=== PATIENT | female | born 1960 | race Caucasian/White ===

== ENCOUNTER 2018-03-26 09:46 | Outpatient (CLI) | payer OTHER | END 2018-03-26 16:04 | disposition home or self-care (01) | LOC: MAMO-SONO 09:46 | DX: Z12.31 Encounter for screening mammogram for malignant neoplasm of breast (principal); N60.11 Diffuse cystic mastopathy of right breast; N60.12 Diffuse cystic mastopathy of left breast ==

== ENCOUNTER 2020-04-13 09:24 | Outpatient (CLI) | payer OTHER | END 2020-04-13 10:02 | disposition home or self-care (01) | LOC: RAD 09:24 | PROVIDERS: ATTEND Internal Medicine | DX: M50.30 Other cervical disc degeneration, unspecified cervical region (principal); N60.11 Diffuse cystic mastopathy of right breast; N60.12 Diffuse cystic mastopathy of left breast | CPT/HCPCS: 72141 ==

== ENCOUNTER 2020-04-13 11:58 | Outpatient (CLI) | payer OTHER | END 2020-04-13 12:53 | disposition home or self-care (01) | LOC: NUCLEAR 11:58 | PROVIDERS: ATTEND Internal Medicine | DX: M81.0 Age-related osteoporosis without current pathological fracture (principal) ==

== ENCOUNTER 2020-11-08 11:24 | Emergency (ER) | payer OTHER ==
[~2020-11-08] VITALS: Ht 157.5 cm; Wt 68.0 kg
[2020-11-08] MEDS ORDERED: ATORVASTATIN CA20 MG PO (11:39)
[2020-11-08] MEDS ORDERED: PROPRANOLOL HCL20 MG PO (11:39)
[2020-11-08] MEDS ORDERED: GABAPENTIN300 M2 PO (11:40)
[2020-11-08] MEDS ORDERED: ESCITALOPRAM OX20 MG PO (11:40)
== END 2020-11-08 16:15 | disposition home or self-care (01) ==
LOC: ER 11:24
DX: G56.02 Carpal tunnel syndrome, left upper limb (principal); M25.532 Pain in left wrist

== ENCOUNTER 2020-11-29 06:50 | Day surgery (SDC) | payer OTHER ==
[~2020-11-29 06:50] MED LIST: ATORVASTATIN CA20 MG PO; ESCITALOPRAM OX20 MG PO; GABAPENTIN300 M2 PO; LEXAPRO20 MG PO; PROPRANOLOL HCL20 MG PO
== END 2020-11-29 14:45 | disposition home or self-care (01) ==
LOC: CIR.AMB 06:50
PROVIDERS: ATTEND Orthopaedic Surgery Hand Surgery
DX: G56.02 Carpal tunnel syndrome, left upper limb (principal); Z20.822 Contact with and (suspected) exposure to COVID-19